=== PATIENT | male | born 1985 | race Caucasian/White ===

== ENCOUNTER 2016-07-12 07:51 | Emergency (ER) | payer BC ==
[~2016-07-12] VITALS: Ht 165.1 cm; Wt 88.9 kg
[2016-07-12 08:03] VITALS: BP 144/98
[2016-07-12] MEDS ORDERED: IPRATRPIUM/ALBUTEROL 0.5/2.5MG 3 ML NEBU. NEB ONE (08:15)
[2016-07-12] MEDS ORDERED: PREDNISONE 20 MG TABLET PO ONE (08:15)
[2016-07-12] MEDS ORDERED: BENZONATATE 100 MG CAPSULE. PO ONE (08:15)
--- NOTE | 2016-07-12 08:17 | PHYS DOC ---
Past Medical History Past Medical History: Asthma Past Surgical History: Other Additional Past Surgical Histo: HERNIA SX Alcohol Use: None Drug Use: None Adult General Chief Complaint Chief Complaint: SHORTNESS OF BREATH HPI HPI Patient is a 31 year old male with history of mild asthma who presents with a productive cough with white sputum, wheezing and shortness of breath intermittently for the last 1 week. Patient states he did not have an inhaler at home, patient states he used his grandmother's inhaler for the last 2 days and ran out. Patient denies any fever. Review of Systems Review of Systems Constitutional: See history of present illness Eyes: Denies change in visual acuity, redness, or eye pain [] HENT: Denies nasal congestion or sore throat [] Respiratory: Cough and shortness of breath Cardiovascular: No additional information not addressed in HPI [] GI: Denies abdominal pain, nausea, vomiting, bloody stools or diarrhea [] : Denies dysuria or hematuria [] Musculoskeletal: Denies back pain or joint pain [] Integument: Denies rash or skin lesions [] Neurologic: Denies headache, focal weakness or sensory changes [] Endocrine: Denies polyuria or polydipsia [] Current Medications Current Medications Current Medications Medications (Trade) Dose Ordered Sig/Kamari Start Time Stop Time Status Last Admin Dose Admin Albuterol/ Ipratropium (Duoneb) 3 ml 1X ONCE 07/12/16 08:15 07/12/16 08:16 DC Benzonatate (Tessalon Perle) 200 mg 1X ONCE 07/12/16 08:15 07/12/16 08:16 DC Prednisone (Prednisone) 60 mg 1X ONCE 07/12/16 08:15 07/12/16 08:16 DC Allergies Allergies Allergies Coded Allergies Type Severity Reaction Last Updated Verified No Known Drug Allergies 07/12/16 No Physical Exam Physical Exam Constitutional: Well developed, well nourished, no acute distress, non-toxic appearance. [] HENT: Normocephalic, atraumatic, bilateral external ears normal, oropharynx moist, no oral exudates, nose normal. [] Eyes: PERRLA, EOMI, conjunctiva normal, no discharge. [] Neck: Normal range of motion, no tenderness, supple, no stridor. [] Cardiovascular:Heart rate regular rhythm, no murmur [] Lungs & Thorax: Diminished breath sounds to posterior lower lung bases, no wheezing noted. Patient is actively coughing. Abdomen: Bowel sounds normal, soft, no tenderness, no masses, no pulsatile masses. [] Skin: Warm, dry, no erythema, no rash. [] Back: No tenderness, no CVA tenderness. [] Extremities: No tenderness, no cyanosis, no clubbing, ROM intact, no edema. [] Neurologic: Alert and oriented X 3, normal motor function, normal sensory function, no focal deficits noted. [] Psychologic: Affect normal, judgement normal, mood normal. [] Current Patient Data Vital Signs Vital Signs Date Time Temp Pulse Resp B/P Pulse Ox O2 Delivery O2 Flow Rate FiO2 07/12/16 08:25 94 Room Air 07/12/16 08:03 97.8 88 18 97.8 EKG EKG [] Radiology/Procedures Radiology/Procedures [] Course & Med Decision Making Course & Med Decision Making Pertinent Labs and Imaging studies reviewed. (See chart for details) Patient with history of asthma who presents today with cough or shortness of breath as well as wheezing for one week. Patient has not inhaler. O2 sats 96% on room air on arrival with a heart rate of 88. Patient was given a DuoNeb treatment prednisone and Tessalon Perles. Chest x-ray interpreted by radiologist is negative for any acute findings. Patient's symptoms are consistent with asthma exacerbation. He was discharged with Combivent per his request he states albuterol on its own does not work well, Tessalon Perles, and prednisone for 4 more days. Provided a note for work for 2 days. Provided a doctor's list for follow-up in the next 7 days. Instructed to return to the ED at any point symptoms worsen. Dragon Disclaimer Dragon Disclaimer This electronic medical record was generated, in whole or in part, using a voice recognition dictation system. Departure Departure Impression: Primary Impression: Asthma exacerbation, mild Disposition: 01 HOME, SELF-CARE Condition: STABLE Patient Instructions: Asthma, Adult Additional Instructions: You were seen for asthma exacerbation, use the prescribed medicines as ordered. Please come back to the emergency room if symptoms worsen or you develop any concerning symptoms. Try and follow-up with your own primary care doctor or a doctor from the list provided in the next 7 days. Scripts Promethazine Hcl/Codeine (Promethazine-Codeine Syrup)118 Ml Syrup5 Ml PO Q4- 6HRS #80 ML Prov:LISETH GUEVARA APRN 07/12/16 Benzonatate (Tessalon Perle)100 Mg Capsule1 Cap PO TID #30 CAP Prov:LISETH GUEVARA APRN 07/12/16 Prednisone 50 Mg Tablet1 Tab PO DAILY #4 TAB Prov:LISETH GUEVARA APRN 07/12/16 Ipratropium/Albuterol Sulfate (Combivent Respimat Inhal)4 Gm Aer.w.adap2 Inh IH QID #1 INHALER Prov:LISETH GUEVARA APRN 07/12/16 LISETH GUEVARA APRN Jul 12, 2016 08:17
--- NOTE | 2016-07-12 08:32 | RAD ---
Chest, 2 views, 07/12/2016: History: Cough, shortness of breath, chest pain The heart size and pulmonary vascularity are normal. A calcified granuloma is present in the right upper lobe. No acute infiltrates are seen. There is no evidence of pleural fluid. IMPRESSION: No acute cardiopulmonary abnormality is detected.
[2016-07-12] MEDS ORDERED: PRED50TA PO (08:58)
[2016-07-12] MEDS ORDERED: IPRA4AER IH (08:58)
[2016-07-12] MEDS ORDERED: BENZ100C PO (08:58)
[2016-07-12] MEDS ORDERED: PROM118S2 PO (08:58)
== END 2016-07-12 09:50 | disposition home or self-care (01) ==
LOC: ER 07:51
DX: J45.901 Unspecified asthma with (acute) exacerbation (principal)
CPT/HCPCS: 71020; 94250; 94640; 99284; J7512